=== PATIENT | male | born 1960 | race Caucasian/White ===

== ENCOUNTER 2023-10-05 09:05 | Emergency (ER) | payer SELFPAY ==
[~2023-10-05] VITALS: Ht 165.1 cm; Wt 72.6 kg
[2023-10-05 10:00] LABS: BASOPHILS ABSOLUTE AUTO 0.02 K/mm3 (0.00-0.23); BASOPHILS PERCENT AUTO 0 % (0-2); EOSINOPHILS ABSOLUTE AUTO 0.16 K/mm3 (0.00-0.68); EOSINOPHILS PERCENT AUTO 3 % (0-6); Hematocrit 44.3 % (37.0-53.0); Hemoglobin 15.3 g/dL (13.5-17.5); IMMATURE GRAN ABSOLUTE AUTO 0.02 K/mm3 (0.00-0.10); IMMATURE GRAN PERCENT AUTO 0 % (0-1); LYMPHOCYTES ABSOLUTE AUTO 0.68 K/mm3 (0.84-5.20); LYMPHOCYTES PERCENT AUTO 11 % (21-46); MONOCYTES PERCENT AUTO 11 % (4-13); Mean Corpuscular HGB 28.1 pg (26.0-34.0); Mean Corpuscular HGB Conc 34.5 g/dL (31.5-36.5); Mean Corpuscular Volume 81 fL (80-100); Mean Platelet Volume 9.6 fL (9.1-12.4); NEUTROPHILS PERCENT AUTO 75 % (41-73); Platelet Count 242 K/mm3 (150-400); RDW Standard Deviation 38.4 fL (35.1-46.3); Red Blood Cell Count 5.44 M/mm3 (4.30-5.90); White Blood Cell Count 6.18 K/mm3 (4.00-11.30)
[2023-10-05 10:22] LABS: Albumin, Blood 3.6 g/dL (3.4-5.0); Bilirubin, Total 0.7 mg/dL (0.1-1.0); Calcium, Blood 9.1 mg/dL (8.5-10.1); Creatinine, Blood 1.07 mg/dL (0.60-1.20); Globulin, Blood 3.5 g/dL (2.2-4.0); Potassium, Blood 4.4 mmol/L (3.5-5.5); Total Protein, Blood 7.1 g/dL (6.4-8.2)
[2023-10-05 13:18] LABS: International Normalized Ratio 0.99; Prothrombin Time Results 10.6 Sec (9.7-11.5)
== END 2023-10-05 12:53 | disposition home or self-care (01) ==
LOC: ER 09:05
PROVIDERS: Emergency Medicine
DX: C18.0 Malignant neoplasm of cecum (principal)
CPT/HCPCS: 74177; 76705; 80053; 82378; 83690; 85025; 85610; 85730; Q9967

== ENCOUNTER 2023-10-14 17:18 | Inpatient (IN) | payer OTHER ==
[~2023-10-14] VITALS: Ht 152.4 cm; Wt 69.8 kg
[2023-10-14 17:39] LABS: BASOPHILS ABSOLUTE AUTO 0.04 K/mm3 (0.00-0.23); BASOPHILS PERCENT AUTO 0 % (0-2); EOSINOPHILS ABSOLUTE AUTO 0.03 K/mm3 (0.00-0.68); EOSINOPHILS PERCENT AUTO 0 % (0-6); Hematocrit 42.6 % (37.0-53.0); Hemoglobin 14.8 g/dL (13.5-17.5); IMMATURE GRAN ABSOLUTE AUTO 0.04 K/mm3 (0.00-0.10); IMMATURE GRAN PERCENT AUTO 0 % (0-1); LYMPHOCYTES ABSOLUTE AUTO 0.77 K/mm3 (0.84-5.20); LYMPHOCYTES PERCENT AUTO 5 % (21-46); MONOCYTES PERCENT AUTO 7 % (4-13); Mean Corpuscular HGB 27.6 pg (26.0-34.0); Mean Corpuscular HGB Conc 34.7 g/dL (31.5-36.5); Mean Corpuscular Volume 80 fL (80-100); Mean Platelet Volume 9.2 fL (9.1-12.4); NEUTROPHILS ABSOLUTE AUTO 12.94 K/mm3 (1.96-9.15); NEUTROPHILS PERCENT AUTO 87 % (41-73); Platelet Count 354 K/mm3 (150-400); RDW Coefficient Variation 12.5 % (11.7-14.2); RDW Standard Deviation 35.7 fL (35.1-46.3); Red Blood Cell Count 5.36 M/mm3 (4.30-5.90); White Blood Cell Count 14.92 K/mm3 (4.00-11.30)
[2023-10-14 18:04] LABS: Albumin, Blood 3.3 g/dL (3.4-5.0); Albumin/Globulin Ratio 0.8 (0.8-1.8); Bilirubin, Total 0.6 mg/dL (0.1-1.0); Calcium, Blood 9.2 mg/dL (8.5-10.1); Globulin, Blood 4.1 g/dL (2.2-4.0); Potassium, Blood 4.2 mmol/L (3.5-5.5); Total Protein, Blood 7.4 g/dL (6.4-8.2)
[2023-10-14] MEDS ORDERED: NS 1,000 ML IV SCH ×2 (18:15→21:20)
[2023-10-14] MEDS ORDERED: Ketorolac Tromethamine 30mg Vial IV ONE (18:15)
[2023-10-14] MEDS ORDERED: SPIRONOLACTONE25 MG PO (20:59)
[2023-10-14] MEDS ORDERED: OXYC5 PO (20:59)
[2023-10-14] MEDS ORDERED: Ampicillin Sod/Sulbactam Sod 3 GM in NS 100 ML IV ONE (21:05)
[2023-10-14] MEDS ORDERED: Ondansetron HCl 2 MG / ML 2ML Vial IV PRN (21:20)
[2023-10-14] MEDS ORDERED: FentaNYL Citrate 50 MCG/ML 2 ML Injection IV PRN (21:20)
[2023-10-14] MEDS ORDERED: Piperacillin/Tazobactam Sod 3.375 GM in NS 100 ML IV SCH (22:00)
--- NOTE | 2023-10-14 22:38 | NUR ---
NEW ADMIT. PATIENT ADMITTED TO ROOM 331 FROM THE ER. PATIENT ARRIVED TO ROOM VIA WHEELCHAIR, IN PERSONAL CLOTHING. ONCE TO THE ROOM PATIENT ABLE TO SELF TRANSFER FROM WHEELCHAIR TO HOSPITAL BED WITH STEADY GAIT. PATIENT HAS NO PERSONAL BELONGINGS OTHER THAN THE CLOTHES HE HAS ON. PATIENT ARRIVES TO ROOM WITH HIS TWO ADULT CHILDREN AND . PATIENT IS PLEASANT AND ORIENTED TO ROOM. THIS RN TO ASSUME CARE OF PATIENT.
[2023-10-14 22:47] VITALS: BP 133/85
[2023-10-15] VITALS (19 sets, daily range): BP systolic 130–163; BP diastolic 73–97
--- NOTE | 2023-10-15 04:03 | NUR ---
SHIFT SUMMARY. PATIENT REPORTS ABDOMINAL PAIN THAT IS IMPROVED FROM PAIN MEDICATION RECEIVED IN THE ER. PATIENT IS PLEASANT AND COOPERATIVE WITH CARE. A&OX4. INDEPENDENT IN ROOM. PATIENT IS BEING SEEN FOR ACUTE APENDICITIS. PATIENT IS CURRENTLY NPO FOR GENERAL SURGERY CONSULT. PATIENT CALLS APPROPRIATELY AND IS ABLE TO MAKE HIS NEEDS KNOWN. PATIENT HAS RESTED OFF AND ON T/O NIGHT WITH RESPIRATIONS EQUAL AND UNLABORED. BED IS LOCKED IN THE LOWEST POSITION WITH CALL LIGHT IN REACH. CARE IS ONGOING.
--- NOTE | 2023-10-15 05:05 | NUR ---
HOSPITALIST ON THE FLOOR. THIS RN TALKED WITH HOSPITALIST REGARDING PATIENTS REQUEST FOR PAIN MEDICATION THAT WAS NOT STRONG FENTANYL-DR. JONES ORDERED FOR TORADOL 15MG Q8P WITH MAX DOSE OF 6.
[2023-10-15] MEDS ORDERED: Ketorolac Tromethamine 15mg Vial IV PRN (05:15)
[2023-10-15 05:35] LABS: BASOPHILS ABSOLUTE AUTO 0.02 K/mm3 (0.00-0.23); BASOPHILS PERCENT AUTO 0 % (0-2); EOSINOPHILS ABSOLUTE AUTO 0.05 K/mm3 (0.00-0.68); EOSINOPHILS PERCENT AUTO 1 % (0-6); Hematocrit 36.5 % (37.0-53.0); Hemoglobin 12.5 g/dL (13.5-17.5); IMMATURE GRAN ABSOLUTE AUTO 0.02 K/mm3 (0.00-0.10); IMMATURE GRAN PERCENT AUTO 0 % (0-1); LYMPHOCYTES ABSOLUTE AUTO 0.49 K/mm3 (0.84-5.20); LYMPHOCYTES PERCENT AUTO 5 % (21-46); MONOCYTES ABSOLUTE AUTO 0.86 K/mm3 (0.16-1.47); MONOCYTES PERCENT AUTO 8 % (4-13); Mean Corpuscular HGB 27.4 pg (26.0-34.0); Mean Corpuscular HGB Conc 34.2 g/dL (31.5-36.5); Mean Corpuscular Volume 80 fL (80-100); Mean Platelet Volume 9.5 fL (9.1-12.4); NEUTROPHILS ABSOLUTE AUTO 9.04 K/mm3 (1.96-9.15); NEUTROPHILS PERCENT AUTO 86 % (41-73); Platelet Count 250 K/mm3 (150-400); RDW Coefficient Variation 12.4 % (11.7-14.2); RDW Standard Deviation 35.8 fL (35.1-46.3); Red Blood Cell Count 4.57 M/mm3 (4.30-5.90); White Blood Cell Count 10.48 K/mm3 (4.00-11.30)
[2023-10-15 05:50] LABS: International Normalized Ratio 1.08; Prothrombin Time Results 11.5 Sec (9.7-11.5)
[2023-10-15 06:07] LABS: Albumin, Blood 2.7 g/dL (3.4-5.0); Albumin/Globulin Ratio 0.8 (0.8-1.8); Bilirubin, Total 0.5 mg/dL (0.1-1.0); Bun/Creatinine Ratio 16.4 (12.0-20.0); Calcium, Blood 8.3 mg/dL (8.5-10.1); Creatinine, Blood 0.91 mg/dL (0.60-1.20); Globulin, Blood 3.3 g/dL (2.2-4.0); Magnesium, Blood 2.1 mg/dL (1.6-2.4)
[2023-10-15] MEDS ORDERED: Bupivacaine 0.5% Inj 50 ML Vial ONE (12:44)
[2023-10-15] MEDS ORDERED: propofoL 20 ML IV ONE (12:57)
[2023-10-15] MEDS ORDERED: Bupivacaine HCl 0.25% 30 ML Injection ONE (12:58)
[2023-10-15] MEDS ORDERED: Lactated Ringer's 1,000 ML IV SCH (13:10)
[2023-10-15] MEDS ORDERED: FentaNYL Citrate 50 MCG/ML 2 ML Injection ONE ×3 (13:40→16:41)
--- NOTE | 2023-10-15 13:45 | NUR ---
INTO SDS VIA BED. PT A&OX4-REPORTS 2/10 ABDOMINAL PAIN. HISTORY AND ALLERGIES REVIEWED. HR 100'S-110'S/ TEMP 100.2. IVF WIDE OPERN PER DR. TRINH.12 LEAD EKG DONE.LUNGS CLEAR-NO NOTED SOB. NPO STATUS CONFIRMED.
[2023-10-15] MEDS ORDERED: Midazolam HCl 1MG / ML 2ML Vial ONE (13:52)
[2023-10-15] MEDS ORDERED: propofoL 40 ML IV ONE (13:53)
[2023-10-15] MEDS ORDERED: HYDROmorphone HCl/Pf 1MG SYR ONE (14:48)
[2023-10-15] MEDS ORDERED: Sugammadex Sodium 200 MG/2ML SDV (100 MG/ML) ONE (15:21)
[2023-10-15] MEDS ORDERED: Rocuronium Bromide 10 MG/ML 5ML Injection IV ONE (15:58)
--- NOTE | 2023-10-15 16:30 | NUR ---
PT TRANSFERED DOWN TO SURGERY WITH DR CARDOZO AT 1320. CALLED REPORT TO KITTY CARRANZA WHO IS TO RECIEVE PT AFTER SURGERY. PERSONAL BELONGINGS WHERE TRANFERED TO ROOM 228. PT PRIOT TO SURGERY WAS AOX4 AND COOPERATIVE OF CARE. PT WAS INDEPENDENT AND KEEP NPO. ABLE TO MAKE NEEDS KNOWN.
[2023-10-15] MEDS ORDERED: Ketorolac Tromethamine 30mg Vial ONE (16:47)
--- NOTE | 2023-10-15 18:03 | NUR ---
1730 RECEIVED TO ROOM VIA BED FROM PACU/ ALERT AND ORIENTED, DROWSY. REPORTS CURRENT PAIN AT 2/10 WHICH IS AN ACCEPTABLE LEVEL FOR HIM, DENIES NAUSEA. MIDLINE HETAL DRESSING IN PLACE AND FUCTIONING, 2 SMALL 1 CM AREAS OF BLOODY DRAINAGE ON DRESSING. BRAUN IN PLACE WITH CLEAR YELLOW URINE. PT INSRUCTED ON USE OF IS AND DEMONSTRATES UNDERSTANDING. DISCUSSED PAIN SCALE AND PAIN CONTROL WITH PATIENT ICE CHIPS GIVEN
--- NOTE | 2023-10-15 18:36 | NUR ---
PT REPORTS RIGHT EYE FEELS SCRATCHY, IRRIGATED WITH NORMAL SSALINE. PT INSTRUCTED TO CALL IF WORSENS
--- NOTE | 2023-10-15 22:33 | NUR ---
ASSUMPTION OF CARE RECEIVED REPORT FROM CHRISTIANE CARRANZA. VSS. PT LYING IN BED. TOLERATING ICE CHIPS. MIDLINE HETAL C/D/I. PT HAS NOT BEEN OOB POST-OP. PT REPORTS PAIN TOLERABLE. IV FLUIDS INFUSING PER EMAR. NO STATED NEEDS AT THIS TIME. CALL LIGHT IN REACH, BED IN LOWEST POSITION.
[2023-10-16 04:16] VITALS: BP 136/82
[2023-10-16 04:43] LABS: BASOPHILS ABSOLUTE AUTO 0.02 K/mm3 (0.00-0.23); BASOPHILS PERCENT AUTO 0 % (0-2); EOSINOPHILS PERCENT AUTO 0 % (0-6); Hematocrit 35.6 % (37.0-53.0); IMMATURE GRAN ABSOLUTE AUTO 0.05 K/mm3 (0.00-0.10); IMMATURE GRAN PERCENT AUTO 0 % (0-1); LYMPHOCYTES ABSOLUTE AUTO 0.33 K/mm3 (0.84-5.20); LYMPHOCYTES PERCENT AUTO 3 % (21-46); MONOCYTES ABSOLUTE AUTO 0.88 K/mm3 (0.16-1.47); MONOCYTES PERCENT AUTO 7 % (4-13); Mean Corpuscular HGB 27.3 pg (26.0-34.0); Mean Corpuscular HGB Conc 33.7 g/dL (31.5-36.5); Mean Corpuscular Volume 81 fL (80-100); Mean Platelet Volume 9.7 fL (9.1-12.4); NEUTROPHILS ABSOLUTE AUTO 11.07 K/mm3 (1.96-9.15); NEUTROPHILS PERCENT AUTO 90 % (41-73); Platelet Count 267 K/mm3 (150-400); RDW Coefficient Variation 12.7 % (11.7-14.2); RDW Standard Deviation 37.5 fL (35.1-46.3); Red Blood Cell Count 4.39 M/mm3 (4.30-5.90); White Blood Cell Count 12.35 K/mm3 (4.00-11.30)
[2023-10-16 05:13] LABS: Bun/Creatinine Ratio 18.3 (12.0-20.0); Calcium, Blood 8.1 mg/dL (8.5-10.1); Creatinine, Blood 0.88 mg/dL (0.60-1.20); Potassium, Blood 4.2 mmol/L (3.5-5.5)
--- NOTE | 2023-10-16 06:27 | NUR ---
SHIFT SUMMARY POD 1 R HEMICOLECTOMY. NO ACUTE CHANGES OVERNIGHT. VSS. TOLERATING ICE CHIPS. IV FLUIDS/ABX INFUSING PER EMAR. MIDLINE HETAL C/D/I. PT REPORTS PAIN TOLERABLE, MEDICATED PER EMAR. AWAITING FIRST POST-OP AMBULATION, BASELINE IND. NO BM/FLATUS. BRAUN DRAINING YELLOW URINE. CALL LIGHT IN REACH, BED IN LOWEST POSITION, WILL REPORT TO DAY RN.
[2023-10-16 07:06] VITALS: BP 147/88
[2023-10-16] MEDS ORDERED: OxyCODONE HCL 5 MG TAB PO PRN (11:35)
[2023-10-16 15:23] VITALS: BP 141/89
--- NOTE | 2023-10-16 18:34 | NUR ---
SUMMARY: PT IS POD1 R SULMA COLECTOMY. A/O, VSS. PT REPORTED PASSING SOME GAS TONIGHT AFTER A WALK AROUND UNIT. NO N/V, TOLERATING CLEAR LIQ DIET. PAIN APPEARS TO BE MANAGED WELL WITH 5MG OXY AND FENTANYAL FOR BREAKTHROUGH. SURGICAL SITES WNL. BRAUN DC'D AND PT VOIDING. NO ACUTE SAFETY CONCERNS, PT AT BEDSIDE AND CALL LIGHT IN REACH.
[2023-10-16 18:50] VITALS: BP 147/88
[2023-10-16] MEDS ORDERED: Calcium Carbonate 500 MG Tab Chew PO PRN (21:35)
[2023-10-16 23:50] VITALS: BP 148/95
[2023-10-17 03:14] VITALS: BP 131/71
--- NOTE | 2023-10-17 07:06 | NUR ---
NOC SHIFT SUMMARY PT ORIENTED X4 OVERNIGHT, VSS. PAIN TO MID ABD, HETAL DRESSING IN PLACE WITH MINIMAL OLD BLOODY DRAINAGE APPROXIMATELY QUARTER SIZED. NO CHANGE OVERNIGHT. HYPOACTIVE BOWEL SOUNDS. PO AND IV MEDS GIVEN FOR BREAKTHROUGH AND TOLERATED WELL. COACHED ON PAIN SCALE AND GETTING AHEAD OF PAIN. WHEN CHECKING WITH PT THIS AM AT 0600 ROUNDS PT DENIES PAIN AND DECLINES OXYCODONE. SOME DYSPEPSIA, TUMS GIVEN WITH RELIEF.
[2023-10-17 07:46] VITALS: BP 142/83
[2023-10-17 14:10] VITALS: BP 126/80
--- NOTE | 2023-10-17 18:08 | NUR ---
SHIFT SUMMARY POD2 R SULMA COLLECTOMY, A/OX4, VSS, TOLERATING PO, INDEPENDENT IN THE ROOM, MIDLINE HETAL HAS SMALL AMT DRAINAGE NOTED FROM PRIOR SHIFT. NO BM THIS SHIFT, NO ACUTE EVENTS THIS SHIFT, CALL LIGHT IN REACH.
[2023-10-17 18:30] VITALS: BP 135/83
--- NOTE | 2023-10-17 18:42 | NUR ---
FLATUS PT REPORTS HAVING SMALL AMOUNT OF FLATUS TODAY
[2023-10-18 02:45] VITALS: BP 135/86
--- NOTE | 2023-10-18 04:13 | NUR ---
SHIFT SUMMARY: HERNAN IS A&OX4. VSS, NO ACUTE EVENTS OVERNIGHT, MAINTAINING SATS ORA, CONTINUOUS PULSE OX IN PLACE. HE REPORTS ADEQUATE PAIN MANAGEMENT WITH MEDICATIONS PER MAR. HE IS TOLERATING THE CLEAR LIQUID DIET WELL, IS INDEPENDENT IN THE ROOM AND HALLWAY, AND DENIES ANY DIFFICULTY URINATING. HE STATES THAT HE HAS NOT YET PASSED GAS OR STOOL. IV TO L AC PATENT, FLUIDS INFUSING. HETAL DRAIN TO MIDLINE INCISION WITH SMALL DRAINAGE UNCHANGED FROM BEGINNING OF SHIFT. HE IS LYING IN BED WITH THE CALL LIGHT IN REACH. WILL GIVE REPORT TO DAY SHIFT RN.
[2023-10-18 07:15] VITALS: BP 131/76
[2023-10-18 09:38] LABS: BASOPHILS ABSOLUTE AUTO 0.03 K/mm3 (0.00-0.23); BASOPHILS PERCENT AUTO 0 % (0-2); EOSINOPHILS ABSOLUTE AUTO 0.22 K/mm3 (0.00-0.68); EOSINOPHILS PERCENT AUTO 2 % (0-6); Hematocrit 32.1 % (37.0-53.0); Hemoglobin 10.6 g/dL (13.5-17.5); IMMATURE GRAN ABSOLUTE AUTO 0.04 K/mm3 (0.00-0.10); IMMATURE GRAN PERCENT AUTO 0 % (0-1); LYMPHOCYTES ABSOLUTE AUTO 1.03 K/mm3 (0.84-5.20); LYMPHOCYTES PERCENT AUTO 11 % (21-46); MONOCYTES ABSOLUTE AUTO 0.89 K/mm3 (0.16-1.47); MONOCYTES PERCENT AUTO 10 % (4-13); Mean Corpuscular HGB 27.3 pg (26.0-34.0); Mean Corpuscular Volume 83 fL (80-100); Mean Platelet Volume 9.3 fL (9.1-12.4); NEUTROPHILS ABSOLUTE AUTO 6.89 K/mm3 (1.96-9.15); NEUTROPHILS PERCENT AUTO 76 % (41-73); Platelet Count 370 K/mm3 (150-400); RDW Coefficient Variation 13.1 % (11.7-14.2); RDW Standard Deviation 39.7 fL (35.1-46.3); Red Blood Cell Count 3.88 M/mm3 (4.30-5.90)
[2023-10-18 10:08] LABS: Albumin, Blood 2.3 g/dL (3.4-5.0); Albumin/Globulin Ratio 0.6 (0.8-1.8); Bilirubin, Total 0.4 mg/dL (0.1-1.0); Bun/Creatinine Ratio 11.1 (12.0-20.0); Calcium, Blood 8.1 mg/dL (8.5-10.1); Creatinine, Blood 0.81 mg/dL (0.60-1.20); Globulin, Blood 3.8 g/dL (2.2-4.0); Magnesium, Blood 2.2 mg/dL (1.6-2.4); Phosphorus, Blood 2.3 mg/dL (2.5-4.9); Potassium, Blood 3.8 mmol/L (3.5-5.5); Total Protein, Blood 6.1 g/dL (6.4-8.2)
[2023-10-18] MEDS ORDERED: Sennosides 8.6 MG Tab PO SCH (13:00)
[2023-10-18 14:47] VITALS: BP 130/79
[2023-10-18] MEDS ORDERED: Potassium Phos/Sodium Phos 250 MG PACK PO SCH (17:00)
[2023-10-18 19:25] VITALS: BP 151/86
--- NOTE | 2023-10-18 20:50 | NUR ---
SHIFT SUMMARY POD3 OPEN R SULMA COLLECTOMY, A/OX4, VSS, TOLERATING CLEAR INTAKE, AMBULATING IN THE HALLS, PAIN MANAGED PER EMAR, NO BM THIS SHIFT BUT SOME FLATUS. NO ACUT EVENTS, CALL LIGHT IN REACH.
[2023-10-19 04:02] VITALS: BP 136/85
--- NOTE | 2023-10-19 06:22 | NUR ---
SHIFT SUMMARY POD 4-R HEMICOLECTOMY. MIDLINE W/HETAL DRESSING INTACT, COMPRESSED, MIN SHADOWING ROUGHLY THE SIZE OF A QUARTER ON DRESSING. DENIES N/V, JENNIFER CLEAR DIET. ACTIVE BT. REPORTS PASSING FLATUS. REPORTS 3/10 GEN ABD PAIN, MEDICATED 2x W/5MG OXYCODONE & PT REPORTED RELIEF. AOX4. VSS. CALL LIGHT IN REACH & PT ABLE TO MAKE NEEDS KNOWN.
[2023-10-19 07:18] VITALS: BP 129/86
--- NOTE | 2023-10-19 11:16 | NUR ---
DR CARDOZO IN TO SEE PT.
[2023-10-19] MEDS ORDERED: Bisacodyl 10 MG Supp PR PRN (12:15)
[2023-10-19 16:13] VITALS: BP 142/79
--- NOTE | 2023-10-19 17:20 | NUR ---
SUMMARY NO ACUTE CHANGES T/O SHIFT. PT INDEPENDENT IN ROOM. AMBULATED IN [place] W/SO DURING SHIFT. ADVANCED TO REGULAR DIET THIS SHIFT. PT IS VOIDING AND PASSING FLATUS BUT NO BM YET. MEDICATED PER ORDERS FOR PAIN. CALL LIGHT IN REACH.
[2023-10-19 19:52] VITALS: BP 142/84
[2023-10-20 04:19] VITALS: BP 126/78
[2023-10-20 07:30] VITALS: BP 132/78
--- NOTE | 2023-10-20 07:51 | NUR ---
SUMMARY PT REPORTED SLEPT WELL LAST NIGHT. NO ACUTE CHANGES.PASSING FLATUS,BUT NO BM YET.
[2023-10-20] MEDS ORDERED: Sennosides 8.6 MG Tab PO SCH (09:00)
--- NOTE | 2023-10-20 14:06 | NUR ---
"Spiritual Care | Pt. request Pt. is awake in bed and welcomes my visit. Pt. is pleasant. 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 Pt. displays evidence of having a strong jessica so matters of jessica, belief and the pentecostalism are considered. Pt. is unsettled by not being able to expel feces. Prayed with the Pt. specifically about this particular issue. Pt. verbalizes gratitude for the spiritual care visit and welcomes this lead inspector to return."
[2023-10-20 15:21] VITALS: BP 142/92
--- NOTE | 2023-10-20 18:32 | NUR ---
SUMMARY PT RECEIVED SUPPOSITORY THIS SHIFT TO FACILITATE BM. PT HAD BM. HAD PERIOD OF TIME WHERE FELT DIFFICULTY VOIDING. BS SHOWED 320, PT IMMEDIATELY VOIDED 100 AND HAS BEEN VOIDING SINCE. PAIN WELL CONTROLLED W/ONE TAB OXY PER ORDERS. PT INDEPENDENT IN ROOM. CALL LIGHT IN REACH.
[2023-10-20 19:16] VITALS: BP 138/88
--- NOTE | 2023-10-21 04:48 | NUR ---
SHIFT SUMMARY POD 6 R HEMICOLECTOMY PT ABLE TO REST DURING THE NIGHT. PAIN MANAGED PER EMAR. PT TOLERATING PO INTAKE. VOIDING. PT REPORTS PASSING GAS AND HAVING SMALL LOOSE BM. MIDLINE HETAL HAS SOME LIGHT DRAINAGE ON IT BUT COMPRESSED AND OTHERWISE DRY AND INTACT. VSS. NO OTHER CONCERNS AT THIS TIME, CALL LIGHT WITHIN REACH
[2023-10-21 04:49] VITALS: BP 127/85
[2023-10-21 07:40] VITALS: BP 137/85
[2023-10-21] MEDS ORDERED: Senna-Extra17.2 MG PO (10:32)
[2023-10-21] MEDS ORDERED: AMOCLA875 PO (10:33)
--- NOTE | 2023-10-21 10:58 | NUR ---
DISCHARGE PT AND SPOUSE EDUCATED ON AND RECEIVED PRINTED DISCHARGE INSTRUCTIONS AND VERBALIZED AN UNDERSTANDING. EXTRA DRESSINGS GIVEN TO PT. IVS DC'D. RX FAXED TO [facility]. PT REPORTS ALREADY HAVING OXYCODONE RX AT HOME. PT PACKED ALL PERSONAL BELONGINGS AND LEFT WITH SPOUSE AT SIDE.
== END 2023-10-21 11:10 | disposition home or self-care (01) | DRG 329 ==
LOC: ER 17:18 → MEDS 22:20 → SURS 22:20 → MEDS 22:47 → SURS 10-15 16:38
PROVIDERS: Internal Medicine; Nurse Practitioner Acute Care; Physician Assistant; Surgery; ADMIT Internal Medicine
PROC: 0DTF0ZZ Resection of Right Large Intestine, Open Approach (ICD-10-PCS; principal; 2023-10-15 13:15)
DX: C18.0 Malignant neoplasm of cecum (principal); K35.32 Acute appendicitis with perforation, localized peritonitis, and gangrene, without abscess; R65.11 Systemic inflammatory response syndrome (SIRS) of non-infectious origin with acute organ dysfunction; C78.7 Secondary malignant neoplasm of liver and intrahepatic bile duct; C77.9 Secondary and unspecified malignant neoplasm of lymph node, unspecified; E83.39 Other disorders of phosphorus metabolism; D50.9 Iron deficiency anemia, unspecified
CPT/HCPCS: 36415; 71260; 74177; 80048; 80053; 83735; 84100; 85025; 85610; 88309; 93005; 93010; 94762; 96361; 96374-59; 99285-25; A9270; J0295; J1170; J1885; J2250; J2405; J2543; J2704; J3010; J7030; J7120; Q9967

== ENCOUNTER 2023-11-12 09:58 | Day surgery (SDC) | payer OTHER ==
[~2023-11-12] VITALS: Ht 165.1 cm; Wt 68.4 kg
[~2023-11-12 09:58] MED LIST: AMOCLA875 PO; Lactated Ringer's 1,000 ML IV ONE; OXYC5 PO; SPIRONOLACTONE25 MG PO; Senna-Extra17.2 MG PO
[2023-11-12] MEDS ORDERED: NS 50 ML IV ONE (10:39)
[2023-11-12] MEDS ORDERED: CeFAZolin Sodium 2,000 MG VIAL ONE (10:39)
[2023-11-12] MEDS ORDERED: Lactated Ringer's 1,000 ML IV ONE (11:27)
[2023-11-12] MEDS ORDERED: Midazolam HCL 1 MG/ML 5MLVIAL ONE (12:22)
[2023-11-12] MEDS ORDERED: FentaNYL Citrate 50 MCG/ML 2 ML Injection ONE (12:26)
[2023-11-12] MEDS ORDERED: propofoL 20 ML IV ONE (12:27)
[2023-11-12] MEDS ORDERED: Bupivacaine 0.5% HCl 5 MG/ML 30MLVIAL XX ONE (12:54)
[2023-11-12] MEDS ORDERED: NS XX ONE (12:54)
--- NOTE | 2023-11-12 13:51 | NUR ---
11/12/23 1351 Wesley Arreguin PLACEMENT IS CORRECT, PER TALON IN IMAGING.
== END 2023-11-12 14:40 | disposition home or self-care (01) ==
LOC: ORSCSDS 09:58
PROVIDERS: Surgery
PROC: 0JH60WZ Insertion of Totally Implantable Vascular Access Device into Chest Subcutaneous Tissue and Fascia, Open Approach (ICD-10-PCS; principal; 2023-11-12 11:15)
DX: C18.0 Malignant neoplasm of cecum (principal); C78.7 Secondary malignant neoplasm of liver and intrahepatic bile duct
CPT/HCPCS: 77001; C1788; J0690; J1642; J2250; J2704; J3010; J7120

== ENCOUNTER 2024-07-05 01:05 | Inpatient (IN) | payer OTHER, SELFPAY ==
[~2024-07-05] VITALS: Ht 165.1 cm; Wt 70.1 kg
[~2024-07-05 01:05] MED LIST changes: -Lactated Ringer's 1,000 ML IV ONE
[2024-07-05] MEDS ORDERED: HYDROmorphone HCl/Pf 1MG SYR IV ONE ×2 (02:10→07:00)
[2024-07-05] MEDS ORDERED: NS 1,000 ML IV SCH (02:10)
[2024-07-05 02:11] LABS: BASOPHILS ABSOLUTE AUTO 0.06 K/mm3 (0.00-0.23); BASOPHILS PERCENT AUTO 0 % (0-2); EOSINOPHILS ABSOLUTE AUTO 0.04 K/mm3 (0.00-0.68); EOSINOPHILS PERCENT AUTO 0 % (0-6); Hematocrit 48.1 % (37.0-53.0); Hemoglobin 15.7 g/dL (13.5-17.5); IMMATURE GRAN ABSOLUTE AUTO 0.12 K/mm3 (0.00-0.10); IMMATURE GRAN PERCENT AUTO 1 % (0-1); LYMPHOCYTES ABSOLUTE AUTO 0.59 K/mm3 (0.84-5.20); LYMPHOCYTES PERCENT AUTO 4 % (21-46); MONOCYTES ABSOLUTE AUTO 1.16 K/mm3 (0.16-1.47); MONOCYTES PERCENT AUTO 8 % (4-13); Mean Corpuscular HGB 28.3 pg (26.0-34.0); Mean Corpuscular HGB Conc 32.6 g/dL (31.5-36.5); Mean Corpuscular Volume 87 fL (80-100); Mean Platelet Volume 9.5 fL (9.1-12.4); NEUTROPHILS PERCENT AUTO 87 % (41-73); Platelet Count 206 K/mm3 (150-400); RDW Coefficient Variation 16.7 % (11.7-14.2); RDW Standard Deviation 52.8 fL (35.1-46.3); Red Blood Cell Count 5.54 M/mm3 (4.30-5.90); White Blood Cell Count 14.87 K/mm3 (4.00-11.30)
[2024-07-05 02:23] LABS: Albumin, Blood 2.7 g/dL (3.4-5.0); Albumin/Globulin Ratio 0.7 (0.8-1.8); Calcium, Blood 9.1 mg/dL (8.5-10.1); Creatinine, Blood 0.83 mg/dL (0.60-1.20); Globulin, Blood 4.1 g/dL (2.2-4.0); Potassium, Blood 4.4 mmol/L (3.5-5.5); Total Protein, Blood 6.8 g/dL (6.4-8.2)
[2024-07-05] MEDS ORDERED: DiphenhydrAMINE HCl 50 MG/ML 1ML Vial IV ONE (02:25)
[2024-07-05] MEDS ORDERED: Prochlorperazine Edisylate 10 mg Vial IV ONE (02:25)
[2024-07-05] MEDS ORDERED: HYDROmorphone HCl/Pf 1MG SYR IV PRN ×4 (02:30→07:00)
[2024-07-05 03:44] LABS: Magnesium, Blood 2.1 mg/dL (1.6-2.4)
[2024-07-05 04:21] LABS: Influenza A, PCR NEGATIVE (NEGATIVE); Influenza B, PCR NEGATIVE (NEGATIVE); Resp Syncytial Virus, PCR NEGATIVE (NEGATIVE); SARS-Cov-2 (COVID-19) PCR, MMC NEGATIVE (NEGATIVE)
[2024-07-05] MEDS ORDERED: Ondansetron 4 MG SoluTab MM PRN (05:05)
[2024-07-05] MEDS ORDERED: OxyCODONE HCL 5 MG TAB PO PRN ×2 (05:25→12:30)
[2024-07-05] MEDS ORDERED: Acetaminophen 325 MG TABLET PO PRN (05:50)
[2024-07-05 06:03] LABS: BASOPHILS ABSOLUTE AUTO 0.05 K/mm3 (0.00-0.23); BASOPHILS PERCENT AUTO 0 % (0-2); EOSINOPHILS ABSOLUTE AUTO 0.03 K/mm3 (0.00-0.68); EOSINOPHILS PERCENT AUTO 0 % (0-6); Hematocrit 42.8 % (37.0-53.0); Hemoglobin 14.2 g/dL (13.5-17.5); IMMATURE GRAN ABSOLUTE AUTO 0.12 K/mm3 (0.00-0.10); IMMATURE GRAN PERCENT AUTO 1 % (0-1); LYMPHOCYTES ABSOLUTE AUTO 0.57 K/mm3 (0.84-5.20); LYMPHOCYTES PERCENT AUTO 3 % (21-46); MONOCYTES ABSOLUTE AUTO 1.56 K/mm3 (0.16-1.47); MONOCYTES PERCENT AUTO 9 % (4-13); Mean Corpuscular HGB 28.9 pg (26.0-34.0); Mean Corpuscular HGB Conc 33.2 g/dL (31.5-36.5); Mean Corpuscular Volume 87 fL (80-100); Mean Platelet Volume 9.5 fL (9.1-12.4); NEUTROPHILS ABSOLUTE AUTO 14.46 K/mm3 (1.96-9.15); NEUTROPHILS PERCENT AUTO 86 % (41-73); Platelet Count 189 K/mm3 (150-400); RDW Coefficient Variation 16.6 % (11.7-14.2); RDW Standard Deviation 52.5 fL (35.1-46.3); Red Blood Cell Count 4.92 M/mm3 (4.30-5.90); White Blood Cell Count 16.79 K/mm3 (4.00-11.30)
[2024-07-05 06:32] LABS: Albumin, Blood 2.4 g/dL (3.4-5.0); Albumin/Globulin Ratio 0.7 (0.8-1.8); Bilirubin, Total 0.9 mg/dL (0.1-1.0); Bun/Creatinine Ratio 18.6 (12.0-20.0); Calcium, Blood 8.9 mg/dL (8.5-10.1); Creatinine, Blood 0.7 mg/dL (0.60-1.20); Globulin, Blood 3.5 g/dL (2.2-4.0); Potassium, Blood 4.2 mmol/L (3.5-5.5); Total Protein, Blood 5.9 g/dL (6.4-8.2)
--- NOTE | 2024-07-05 06:39 | NUR ---
REPORT RECEIVED FROM SREE MEJIA RN AND PT T/F VIA NAHUM TO ROOM 346 AT 0610. PT ORIENTED TO ROOM AND CALL SYSTEM W/CALL LIGHT IN REACH. PRN OXYCODONE PROVIDED PER EMAR AND DILAUDID RX CLARIFIED W/. WILL MEDICATE PRN AND REPORT TO DAY RN.
[2024-07-05 06:53] VITALS: BP 165/102
[2024-07-05 07:17] VITALS: BP 156/96
[2024-07-05] MEDS ORDERED: Vitamin B-12100 MCG PO (08:24)
[2024-07-05 08:37] LABS: International Normalized Ratio 1.18; Prothrombin Time Results 12.5 Sec (9.7-11.5)
[2024-07-05] MEDS ORDERED: Enoxaparin 40 MG/0.4 ML SYR SC SCH (09:00)
--- NOTE | 2024-07-05 09:36 | NUR ---
ARRIVAL PT ARRIVED TO UNIT FROM MEDICAL FLOOR VIA WHEELCHAIR. STOOD AND TRANSFERED TO BED. DENIES WEAKNESS AND REPORTS PAIN TOLERABLE AT THIS TIME. SLIGHT DISTENTION BUT DENIES NAUSEA. WANTING TO TAKE A NAP AT THIS TIME. CALL LIGHT PROVIDED. LIGHT OFF.
--- NOTE | 2024-07-05 09:36 | NUR ---
PATIENT TRANSFERRED FROM 346 TO 226, REPORT CALLED TO TERE ARAUZ. BELONGINGS SENT WITH PATIENT.
[2024-07-05] MEDS ORDERED: Ondansetron HCl 2 MG / ML 2ML Vial IV PRN (12:35)
--- NOTE | 2024-07-05 15:12 | NUR ---
SHIFT SUMMARY PAIN MANAGED PER EMAR DURING SHIFT. HE REPORTS IMPROVEMENT WITH IV MEDICATION. HE HAS BEEN ABLE TO SLEEP DURING SHIFT AND IS TOLERATING SOME DIET. PALLIATIVE CARE IN TO SEE PATIENT TODAY. PT CALLS APPROPRIATLY. DENIES FURTHER NEEDS.
[2024-07-05 15:16] VITALS: BP 142/94
--- NOTE | 2024-07-05 16:22 | NUR ---
PT BACK FROM THORACENTISIS AT THIS TIME. STOOD AND TRANSFERED BACK TO BED. REPORTS SOME PAIN. DENIES FURTHER NEEDS
[2024-07-05 16:35] LABS: Automated BF RBC Count 0.005 M/mm3 (0-0)
[2024-07-05 16:36] LABS: Body Fluid WBC Count 2240 /mm3 (0-999); RBC Count, Body Fluid 5000 /mm3 (0-0)
[2024-07-05 16:49] LABS: Albumin, Body Fluid 2.4 g/dL; Glucose, Body Fluid 101 mg/dL; Lactate Dehydrogenase, Body Fl 331 U/L; Protein, Body Fluid 4.2 g/dL; Triglycerides, Body Fluid 63 mg/dL
--- NOTE | 2024-07-05 16:55 | NUR ---
Pt and meeting with Dr. Ludwig this . They are in agreement that if there are no other treatments available for his liver cancer, they will pursue hospice. However, if there is an available treatment, they would like Paliative assist with pain management.
[2024-07-05 17:22] LABS: Appearance, Body Fluid Cloudy (Clear); Color, Body Fluid Yellow (None-Yellow); Total Cell Count, Body Fluid 100
[2024-07-05 17:28] LABS: pH, Body Fluid 6.1
[2024-07-05 19:27] VITALS: BP 134/102
--- NOTE | 2024-07-05 23:37 | NUR ---
UPDATE ASSUMED CARE PT, REPORT RECEIVED FROM PREVIOUS RN, GUILLERMINA. PT A/OX4, MED FOR 09/29 PAIN. HAS CALL LIGHT. BED ALARM AND CONT BIOX ON FOR SAFETY
[2024-07-06 03:52] VITALS: BP 146/97
--- NOTE | 2024-07-06 04:25 | NUR ---
SHIFT SUMMARY NO ACUTE CHANGES T/O SHIFT. PT A/OX4 WITH VSS. PAIN MANAGED PER EMAR. POOR PO INTAKE, ENCOURAGED TO INCREASE JENNIFER. REPORTS 1 VOID THIS SHIFT. SPO2 AT 94% ON RA, HR CONTINUES TO BE TACHYCARDIC RANGING FROM 100-110'S. PT DENIES SX OR DIZZINESS. IS IND IN ROOM. ENCOURAGED SBA R/T NARCOTICS. HAS CALL LIGHT IN REACH AND ABLE TO MAKE NEEDS KNOWN. WILL GIVE REPORT TO ONCOMING RN.
[2024-07-06 04:48] LABS: BASOPHILS ABSOLUTE AUTO 0.05 K/mm3 (0.00-0.23); BASOPHILS PERCENT AUTO 0 % (0-2); EOSINOPHILS ABSOLUTE AUTO 0.09 K/mm3 (0.00-0.68); EOSINOPHILS PERCENT AUTO 1 % (0-6); Hematocrit 44.6 % (37.0-53.0); Hemoglobin 14.7 g/dL (13.5-17.5); IMMATURE GRAN ABSOLUTE AUTO 0.13 K/mm3 (0.00-0.10); IMMATURE GRAN PERCENT AUTO 1 % (0-1); LYMPHOCYTES PERCENT AUTO 4 % (21-46); MONOCYTES PERCENT AUTO 9 % (4-13); Mean Corpuscular HGB 28.9 pg (26.0-34.0); Mean Corpuscular Volume 88 fL (80-100); Mean Platelet Volume 9.3 fL (9.1-12.4); NEUTROPHILS ABSOLUTE AUTO 15.21 K/mm3 (1.96-9.15); NEUTROPHILS PERCENT AUTO 86 % (41-73); Platelet Count 231 K/mm3 (150-400); RDW Coefficient Variation 17.6 % (11.7-14.2); RDW Standard Deviation 54.3 fL (35.1-46.3); Red Blood Cell Count 5.09 M/mm3 (4.30-5.90); White Blood Cell Count 17.78 K/mm3 (4.00-11.30)
[2024-07-06 05:32] LABS: Bun/Creatinine Ratio 20.9 (12.0-20.0); Calcium, Blood 8.8 mg/dL (8.5-10.1); Creatinine, Blood 0.72 mg/dL (0.60-1.20); Potassium, Blood 4.3 mmol/L (3.5-5.5)
[2024-07-06 06:55] VITALS: BP 149/105
[2024-07-06] MEDS ORDERED: Acetaminophen 500 MG Tab PO SCH (08:00)
[2024-07-06 14:20] VITALS: BP 136/96
[2024-07-06] MEDS ORDERED: OxyCODONE HCL 5 MG TAB PO PRN (16:10)
[2024-07-06] MEDS ORDERED: OxyCODONE HCL 15 MG TAB.SR.12H PO SCH (17:00)
--- NOTE | 2024-07-06 17:22 | NUR ---
SUMMARY: NO ACUTE CHANGE TODAY. VSS, PT DENIES ANY SOB. SP02 STABLE ON RA. PT CONTINES TO HAVE PAIN AT ABD AND IN JOINTS. PAIN MEDICATIONS ADJUSTED TONIGHT IN ATTEMPT TO LIMIT IV DILAUDID. PT IS AMBULATING INDEPENDENTLY, REPORTS MORE PAIN WITH MOVEMENT. PT USES CALL LIGHT AND MAKES NEEDS KNOWN
[2024-07-06 20:22] VITALS: BP 143/96
[2024-07-06] MEDS ORDERED: Sennosides 8.6 MG Tab PO SCH (21:00)
[2024-07-07 02:25] VITALS: BP 155/111
[2024-07-07 05:13] LABS: BASOPHILS ABSOLUTE AUTO 0.04 K/mm3 (0.00-0.23); BASOPHILS PERCENT AUTO 0 % (0-2); EOSINOPHILS ABSOLUTE AUTO 0.28 K/mm3 (0.00-0.68); EOSINOPHILS PERCENT AUTO 2 % (0-6); Hematocrit 42.2 % (37.0-53.0); Hemoglobin 14.2 g/dL (13.5-17.5); IMMATURE GRAN ABSOLUTE AUTO 0.09 K/mm3 (0.00-0.10); IMMATURE GRAN PERCENT AUTO 1 % (0-1); LYMPHOCYTES ABSOLUTE AUTO 0.95 K/mm3 (0.84-5.20); LYMPHOCYTES PERCENT AUTO 7 % (21-46); MONOCYTES ABSOLUTE AUTO 1.43 K/mm3 (0.16-1.47); MONOCYTES PERCENT AUTO 10 % (4-13); Mean Corpuscular HGB 29.2 pg (26.0-34.0); Mean Corpuscular HGB Conc 33.6 g/dL (31.5-36.5); Mean Corpuscular Volume 87 fL (80-100); Mean Platelet Volume 9.1 fL (9.1-12.4); NEUTROPHILS ABSOLUTE AUTO 11.89 K/mm3 (1.96-9.15); NEUTROPHILS PERCENT AUTO 81 % (41-73); Platelet Count 219 K/mm3 (150-400); RDW Coefficient Variation 17.2 % (11.7-14.2); RDW Standard Deviation 53.4 fL (35.1-46.3); Red Blood Cell Count 4.87 M/mm3 (4.30-5.90); White Blood Cell Count 14.68 K/mm3 (4.00-11.30)
--- NOTE | 2024-07-07 05:17 | NUR ---
SHIFT SUMMARY NO ACUTE CHANGES OVERNIGHT. PAIN MANAGED WITH MEDS PER EMAR. PT RECEIVED OXYCONTIN JUST SHORTLY BEFORE SHIFT CHANGE AND THAT SEEMED TO HAVE WORKED WELL FOR SEVERAL HOURS. OXYCODONE DOSE INCREASED THIS SHIFT FROM 10 MG TO 15 MG PER ORDERS, WHICH CONTROLLED PT PAIN FOR A FEW HOURS BEFORE NEEDING DILAUDID X1 THIS SHIFT FOR BREAKTHROUGH PAIN. INTERMITTENT NAUSEA, ZOFRAN GIVEN. NO VOMITTING. VITALS ARE STABLE. PLAN OF CARE REMAINS UNCHANGED. BED IN LOWEST POSITION, CALL LIGHT WITHIN REACH.
[2024-07-07 05:47] LABS: Bun/Creatinine Ratio 17.8 (12.0-20.0); Calcium, Blood 8.9 mg/dL (8.5-10.1); Creatinine, Blood 0.68 mg/dL (0.60-1.20); Potassium, Blood 3.9 mmol/L (3.5-5.5)
[2024-07-07 07:35] VITALS: BP 148/102
--- NOTE | 2024-07-07 11:09 | NUR ---
Spiritual care Visit. Pt. is awake in bed and welcomes my visit. Pt reminds this saddle cutter that I had seen him the previous year. Considered matters of his cancer journey, and his jessica during the journey. Pt displays evidence of a confident jessica in spite of his circumstances. Spouse came to bedside during our visit, then excused herself to give us privacy. Prayed for the Pt. Pt. verbalized gratitude for the spiritual care visit and welcomed this saddle cutter to return.
[2024-07-07] MEDS ORDERED: Ketorolac Tromethamine 15mg Vial IV PRN (12:30)
[2024-07-07 15:28] VITALS: BP 137/97
--- NOTE | 2024-07-07 16:07 | NUR ---
SHIFT SUMMARY PT WITH CHRONIC CANCER PAIN. MANAGED WITH OXYCONTIN, OXYCODONE, TORADOL, TYLENOL, AND BREAKTHROUGH WITH DILAUDID. CONT BIOX IN PLACE. INDEP IN ROOM. VSS. PALLIATIVE CARE + CARE MANAGEMENT WORKING WITH PT AND FAMILY. PLANNING TO DISCHARGE HOME TOMORROW ON HOSPICE. MULTIPLE FAMILY MEMBERS VISITED TODAY FOR SUPPORT. USES CALL LIGHT APPROPRIATELY.
[2024-07-07] MEDS ORDERED: OxyCODONE HCL 20 MG TABCR PO SCH (21:00)
[2024-07-07 21:32] VITALS: BP 170/107
[2024-07-08] MEDS ORDERED: Morphine Sulfate 20 MG/1ML 1 ML Oral Syringe SL PRN (00:40)
[2024-07-08 02:30] VITALS: BP 150/109
[2024-07-08 07:13] VITALS: BP 134/106
--- NOTE | 2024-07-08 07:23 | NUR ---
SHIFT SUMMARY PATIENT HAD A ROUGH NIGHT. PAIN GOT OUT OF CONTROL AT START OF SHIFT. PAIN RT ABDOMEN, GOT UP TO 9/10 AT ONE POINT. PTS SON WAS AT BEDSIDE FOR A FEW HOURS. MEDICATED PATIENT MANY TIMES T/O NOC LONG & SHORT ACTING PO PAIN MEDS, TORADOL, DILAUDID IVP AND GOT A ADDITIONAL ORDER FOR ROXANOL AND GAVE THAT TO PT X1 DOSE. LAST TIME I MEDICATED PT FOR PAIN WAS AT 0338 WITH DILAUDID 1MG IVP. PATIENT SLEPT UNTIL 0715. PATIENT ASKED IF I GAVE HIM ANYTHING WHILE HE WAS SLEEPING. I TOLD HIM NO AND THAT I THINK HE NEEDED SOME SLEEP. PATIENT WANTING TO GO HOME TODAY. PATIENT IS GOING HOME ON HOSPICE. PATIENT SAID HE WAS NOT TAKING ANYMORE OF THE CHEMO MEDS BECAUSE HE NEVER WANTS TO GO THROUGH THAT AGAIN. SPENT A LOT OF TIME LISTENING AND TALKING TO PATIENT. HE IS WORRIED ABOUT HIS . HE HAS EXCEPTED TO PUT IT IN GODS HANDS.
[2024-07-08] MEDS ORDERED: LORazepam 1 MG Tab PO PRN (07:55)
--- NOTE | 2024-07-08 08:29 | NUR ---
Spiritual Care Visit. At the request of the charge nurse, this soaker hides came to bedside as Pts. breakfast was deleivered. Pt. welcomed my visit. Pt. has displayed evidence of being a strong man of jessica on previous visits, but today his countenance was muted. Facilitated a conversation regarding his condition, and considered how his jessica has and will be a source of support. Pastoral care and alcoholic counselor is given. Pt. displays evidence of understanding and spiritual agreement. Prayed with the Pt. Pt. verbalized gratitude for the spiritual care visit.
[2024-07-08] MEDS ORDERED: OxyCODONE HCL 15 MG TAB.SR.12H PO SCH (09:00)
--- NOTE | 2024-07-08 10:55 | NUR ---
Pt to discharge today with [facility]. Pt and were given choice, they chose [facility]. Pt's information and comfort care orders sent to [facility] yesterday afternoon, and they have reached out to pt's for equipment needs. CM aware.
[2024-07-08] MEDS ORDERED: OXYC30ER PO (13:43)
[2024-07-08] MEDS ORDERED: Ativan1 MG PO (13:46)
[2024-07-08] MEDS ORDERED: OXYC10TA19 PO (13:47)
[2024-07-08 14:13] VITALS: BP 147/99
--- NOTE | 2024-07-08 16:51 | NUR ---
DISCHARGE PT AND SPOUSE EDUCATED ON DISCHARGE INSTRUCTIONS AND VERBALIZED AN UNDERSTANDING. WENT OVER ALL NEW RX MEDICATIONS INCLUDING ATIVAN, OXYCONTIN, AND OXYCODONE. PT'S ALREADY FILLED RXs. HOSPICE SET UP PER PUBLIC HEALTH TRAINING ASSISTANT AND REPORTS THEY ARE WAITING FOR THEM AT HOME. IV DC'D. PT LEFT WITH ALL PERSONAL BELONGINGS.
== END 2024-07-08 16:36 | disposition hospice, home (50) | DRG 948 ==
LOC: ER 01:05 → ERHOLD 01:06 → MEDS 01:06 → SURS 09:27
PROVIDERS: Emergency Medicine; Internal Medicine; Student in an Organized Health Care Education/Training Program; ADMIT Student in an Organized Health Care Education/Training Program
PROC: 0W993ZX Drainage of Right Pleural Cavity, Percutaneous Approach, Diagnostic (ICD-10-PCS; principal; 2024-07-05)
DX: G89.3 Neoplasm related pain (acute) (chronic) (principal); J91.0 Malignant pleural effusion; Z66 Do not resuscitate; Z51.5 Encounter for palliative care; Z90.49 Acquired absence of other specified parts of digestive tract; Z98.890 Other specified postprocedural states; Z79.891 Long term (current) use of opiate analgesic; Z85.038 Personal history of other malignant neoplasm of large intestine
CPT/HCPCS: 0241U; 32555; 36415; 71045; 80048; 80053; 82042; 82550; 82945; 83615; 83735; 83986; 84100; 84157; 84478; 85025; 85610; 85730; 87070; 87205; 88108; 88305; 89051; 93005; 93010; 94762; 96361; 96372; 96374; 96375; 96376; 99284-25; A9270; G0378; J0780; J1171; J1200; J1650; J1885; J2405; J7030